=== PATIENT | male | born 1955 | race Caucasian/White ===

== ENCOUNTER 2020-09-27 14:27 | Emergency (ER) | payer MEDICARE, OTHER | END 2020-09-27 16:36 | disposition home or self-care (01) | LOC: ER1 14:27 | DX: Z46.6 Encounter for fitting and adjustment of urinary device (principal); F17.210 Nicotine dependence, cigarettes, uncomplicated; I25.2 Old myocardial infarction | CPT/HCPCS: 51702; 99283 ==

== ENCOUNTER 2020-10-04 12:09 | Emergency (ER) | payer MEDICARE, OTHER ==
[2020-10-04 14:16] LABS: HEMOGLOBIN 12.5 gm/dl (14.0-17.5); RED BLOOD COUNT 4.06 M/UL (4.20-5.50); WHITE BLOOD COUNT 3.3 K/UL (4.5-11.0)
[2020-10-04] MEDS ORDERED: VIBRAMYCIN 100100 MG PO (17:41)
== END 2020-10-04 17:45 | disposition home or self-care (01) ==
LOC: ER1 12:09
PROVIDERS: Emergency Medicine
DX: J18.9 Pneumonia, unspecified organism (principal); J44.9 Chronic obstructive pulmonary disease, unspecified; F17.200 Nicotine dependence, unspecified, uncomplicated; Z20.822 Contact with and (suspected) exposure to COVID-19
CPT/HCPCS: 0240U; 71045; 80053; 81001; 82550; 82553; 84484; 85025; 87040; 93005; 99284

== ENCOUNTER 2020-10-28 18:50 | Emergency (ER) | payer MEDICARE ==
[~2020-10-28 18:50] MED LIST: VIBRAMYCIN 100100 MG PO
== END 2020-10-28 19:36 | disposition home or self-care (01) ==
LOC: ER1 18:50
DX: S80.812A Abrasion, left lower leg, initial encounter (principal); I25.10 Atherosclerotic heart disease of native coronary artery without angina pectoris; I10 Essential (primary) hypertension; I25.2 Old myocardial infarction; F17.210 Nicotine dependence, cigarettes, uncomplicated; W55.03XA Scratched by cat, initial encounter
CPT/HCPCS: 99282